=== PATIENT | male | born 1965 ===

== ENCOUNTER 2025-06-25 05:56 | Inpatient (IN) | payer OTHER ==
[2025-06-18 09:34] VITALS: BP 123/85
[2025-06-18 10:17] LABS: URINE APPEARANCE Clear; URINE BILIRRUBIN Negative (NEGATIVE); URINE BLOOD Negative; URINE COLOR Yellow; URINE GLUCOSE Negative (NEGATIVE); URINE KETONE Negative (NEGATIVE); URINE LEUKOCYTE Negative; URINE NITRATE Negative; URINE PROTEIN Negative (NEGATIVE); URINE UROBILINOGEN 0.2 E.U./dl
[2025-06-18 10:22] LABS: URINE EPITHELIAL CELLS 2.1 uL (0.0-38.8); URINE RBC 5.8 uL (0.0-20.8); URINE WBC 2.1 uL (0.0-23.2)
[2025-06-18 10:27] LABS: URINE BACTERIA 3.6 uL (0.0-1933); URINE CAST 0.00 uL (0.0-1.40)
[2025-06-18 10:49] LABS: INR 0.97
[2025-06-18 11:08] LABS: ALT/SGPT 39.0 U/L (12-78); AST/SGOT 20.0 U/L (15-37); BILIRUBIN TOTAL 0.71 mg/dL (0.3-1.2); BUN CREA RATIO 20.0 (7.0-25.0); CREATININE SERUM 1.15 mg/dL (0.70-1.30); GFR 64.44; GLOBULINA 3.3 G/DL (2.4-3.5); GLUCOSE FASTING 82.0 mg/dL (65-100); OSMOLALITY SERUM 284.0 MOSM/KG (275-295)
[2025-06-18 11:43] LABS: BASO % 0.9 % (0.1-1.2); EOS # 0.29 (0.04-0.54); EOS % 5.5 % (0.7-7.0); LYMPH # 1.12 (1.18-3.74); LYMPH % 21.1 % (19.3-53.1); MEAN PLATELET VOLUME 10.90 fl (9.4-12.4); MONO # 0.61 (0.24-0.82); MONO % 11.5 % (4.7-12.5); NEUT # 3.23 (1.56-6.13); NEUT % 60.6 % (34.0-71.1); RED CELL DISTRIBUTION WIDTH 13.8 % (11.6-14.4)
[~2025-06-25] VITALS: Ht 170.2 cm; Wt 67.1 kg
[~2025-06-25 05:56] MED LIST: CRESTOR40 MG PO; LEVOTHYROXINE25 MCG PO; PEPCID AC20 MG; PROTONIX40 MG PO
[2025-06-25] MEDS ORDERED: DEXAMETHASONE SODIUM PHOSPHATE 4 MG/ML VIAL IV ONE (11:30)
[2025-06-25] MEDS ORDERED: ENALAPRILAT DIHYDRATE 1.25 MG/ML VIAL IV PRN (14:45)
[2025-06-25] MEDS ORDERED: ONDANSETRON HCL 2 MG/ML VIAL IV PRN (14:45)
[2025-06-25] MEDS ORDERED: ACETAMINOPHEN 500 MG GEL..CAP PO SCH (17:00)
[2025-06-25] MEDS ORDERED: CYCLOBENZAPRINE HCL 5 MG TABLET PO SCH (17:00)
[2025-06-25] MEDS ORDERED: TRAMADOL HCL 50 MG TABLET PO SCH (17:00)
[2025-06-25] MEDS ORDERED: DIPHENHYDRAMINE HCL 75 MG,LIDOCAINE HCL 30 ML,MAG HYDROX/ALUMINUM HYD/SIMETH 30 ML PO SCH (17:00)
[2025-06-25] MEDS ORDERED: FAMOTIDINE/PF 20 MG/2 ML VIAL IV SCH (17:00)
[2025-06-25] MEDS ORDERED: CALCITRIOL 0.5 MCG CAPSULE PO SCH ×2 (17:00→19:00)
[2025-06-25] MEDS ORDERED: Calcium Carbonate 1 TAB TABLET PO SCH (18:00)
[2025-06-25 20:00] VITALS: BP 140/80; O2SAT 97
[2025-06-25] MEDS ORDERED: PANTOPRAZOLE SODIUM 40 MG/VIAL VIAL IV PUSH SCH (21:00)
[2025-06-26 01:51] VITALS: BP 119/77; O2SAT 99
[2025-06-26] MEDS ORDERED: LEVOTHYROXINE SODIUM 25 MCG TABLET PO SCH (06:00)
[2025-06-26 08:00] VITALS: BP 127/74; O2SAT 95
[2025-06-26] MEDS ORDERED: ROSUVASTATIN CALCIUM 20 MG TABLET PO SCH (09:00)
== END 2025-06-26 13:43 | disposition home or self-care (01) | DRG 627 ==
LOC: CIR.AMB 05:56 → SURH 21:14
PROVIDERS: ADMIT Surgery; ATTEND Surgery
PROC: 0GBM0ZZ Excision of Left Superior Parathyroid Gland, Open Approach (ICD-10-PCS; 2025-06-25)
PROC: 0GBN0ZZ Excision of Right Inferior Parathyroid Gland, Open Approach (ICD-10-PCS; principal; 2025-06-25 15:15)
DX: E21.0 Primary hyperparathyroidism (principal)